=== PATIENT | female | born 1965 | race Caucasian/White ===

== ENCOUNTER → 2016-07-24 | Outpatient (CLI) | payer BC ==
[~2016-07-24] MED LIST: ASPI81TA28 PO; TRIA37.5 PO
[2016-07-24 10:40] LABS: BLOOD UREA NITROGEN 15 mg/dl (7-18); BUN/CREATININE RATIO 18.1 (10-20); CALCIUM 9.8 mg/dl (8.5-10.1); CARBON DIOXIDE 30 mmol/L (21-32); CHLORIDE 100 mmol/L (98-107); CREATININE 0.85 mg/dl (0.60-1.20); GLUCOSE 95 mg/dl (70-99); POTASSIUM 3.4 mmol/L (3.5-5.1); SODIUM 138 mmol/L (136-145)
[2016-07-24 10:44] LABS: CHOLESTEROL 211 mg/dl (0-200); CHOLESTEROL/HDL RATIO 3.5; HDL CHOLESTEROL 60 mg/dl; LDL CHOLESTEROL CALCULATED 130 mg/dl; TRIGLYCERIDES 104 mg/dl (0-150); VERY LOW DENSITY LIPOPROT CALC 21 mg/dl
== END | disposition home or self-care (01) ==
LOC: C.LAB1850 08:15
PROVIDERS: ATTEND Family Medicine
DX: Z13.220 Encounter for screening for lipoid disorders (principal); H81.09 Meniere's disease, unspecified ear

== ENCOUNTER → 2016-08-15 | Outpatient (CLI) | payer BC ==
[2016-08-15 10:25] LABS: POTASSIUM 3.6 mmol/L (3.5-5.1)
[2016-08-15 10:29] LABS: MAGNESIUM 2.5 mg/dl (1.8-2.4)
[2016-08-18 10:36] LABS: UNSATURATED (UBBC) 577 pg/mL (650-1340)
== END | disposition home or self-care (01) ==
LOC: C.LAB1850 08:44
PROVIDERS: ATTEND Nurse Practitioner Adult Health
DX: E87.6 Hypokalemia (principal)

== ENCOUNTER → 2016-09-05 | Outpatient (CLI) | payer BC ==
--- NOTE | 2016-09-06 13:14 | MAMMOGRAPHY REPORT ---
BILATERAL DIGITAL SCREENING MAMMOGRAM TOMOSYNTHESIS WITH CAD: 09/05/2016 CLINICAL HISTORY: Routine screening. TECHNIQUE: Breast tomosynthesis in addition to standard 2D mammography was performed. Current study was also evaluated with a Computer Aided Detection (CAD) system. COMPARISON: Comparison is made to exams dated: 06/03/2015 mammogram, 04/26/2012 mammogram - [facility], 11/23/2008, and 10/17/2006. BREAST COMPOSITION: The tissue of both breasts is heterogeneously dense, which may obscure small mas ses. FINDINGS: There are possibly increasing microcalcifications in the upper outer and 12:00 right breas t, for which additional spot magnification views are recommended. No other new suspicious mass, architectural distortion or cluster of microcalcifications is seen bila terally. IMPRESSION: ACR BI-RADS CATEGORY 0: INCOMPLETE EVALUATION: NEED ADDITIONAL IMAGING EVALUATION The possible increasing microcalcifications in the right breast need additional evaluation. The patient will be called to schedule an appointment. Approximately 10% of breast cancers are not detected with mammography. A negative mammographic report should not delay biopsy if a clinically suggestive mass is present. Phoebe Faria M.D. ay/:09/05/2016 18:36:33 Lab Asst: Remy TAI(Epifanio)(All), [facility] letter sent: Addl Imaging 0 BI-RADS Code: ACR BI-RADS Category 0: Incomplete Evaluation: Need Additional Imaging Evaluation
== END | disposition home or self-care (01) ==
LOC: C.MAMM 13:57
PROVIDERS: ATTEND Family Medicine
DX: Z12.31 Encounter for screening mammogram for malignant neoplasm of breast (principal); R92.0 Mammographic microcalcification found on diagnostic imaging of breast

== ENCOUNTER → 2016-09-13 | Outpatient (CLI) | payer BC ==
--- NOTE | 2016-09-13 16:40 | MAMMOGRAPHY REPORT ---
UNILATERAL RIGHT DIGITAL DIAGNOSTIC MAMMOGRAM: 09/13/2016 CLINICAL HISTORY: 51-year-old woman called back from screening mammography for 2 possible clusters of microcalcifications within the right breast. No strong family history of breast cancer. TECHNIQUE: Spot magnification right CC and ML views were obtained. COMPARISON: Comparison is made to exams dated: 09/05/2016 mammogram, 06/03/2015 mammogram, 04/26/2012 [facility], 11/23/2008, and 10/17/2006. BREAST COMPOSITION: The tissue of the right breast is heterogeneously dense, which may obscure small masses. FINDINGS: There are 2 groupings of microcalcifications in the 12:00 and upper outer middle to posteri or right breast. The grouping in the 12:00 axis contains 2-3 punctate microcalcifications. The grou ping in the upper outer quadrant contains 6-7 punctate microcalcifications. No obvious associated ma ss or architectural distortion. When comparing back to prior available mammograms, these appear very similar to the 2016 mammograms and some were likely present dating back to 11/23/2008, suggesting donte ign fibrocystic changes. However, given the increased conspicuity, a short interval follow-up diagno stic mammogram with repeat spot magnification views is read middle to ensure stability in 6 months. IMPRESSION: ACR-BI-RADS CATEGORY 3: PROBABLY BENIGN There are 2 groupings of punctate microcalcifications in the 12:00 and upper outer quadrant of the ri ght breast that most likely represent benign fibrocystic changes. However, a short interval follow-u p diagnostic mammogram including repeat spot magnification views is recommended to ensure stability i n 6 months. These results and recommendations were discussed with the patient at the time of the exam. She tenta tively scheduled a follow-up appointment prior to leaving our department. Approximately 10% of breast cancers are not detected with mammography. A negative mammographic report should not delay biopsy if a clinically suggestive mass is present. Phoebe Faria M.D. ay/:09/13/2016 13:51:11 Infection Prevention Specialist: Remy OSORIO)(All), [facility] letter sent: Follow Up Recommended 3 BI-RADS Code: ACR-BI-RADS Category 3: Probably Benign
== END | disposition home or self-care (01) ==
LOC: C.MAMM 13:13
PROVIDERS: ATTEND Family Medicine
DX: R92.0 Mammographic microcalcification found on diagnostic imaging of breast (principal)

== ENCOUNTER → 2016-09-20 | Outpatient (CLI) | payer BC | END | disposition home or self-care (01) | LOC: C.LAB1850 15:00 | PROVIDERS: ATTEND Family Medicine | DX: E53.8 Deficiency of other specified B group vitamins (principal); E83.41 Hypermagnesemia ==

== ENCOUNTER → 2017-03-19 | Outpatient (CLI) | payer BC ==
--- NOTE | 2017-03-19 15:09 | MAMMOGRAPHY REPORT ---
UNILATERAL RIGHT DIGITAL DIAGNOSTIC MAMMOGRAM TOMOSYNTHESIS AND TARGETED RIGHT ULTRASOUND: 03/19/2017 CLINICAL HISTORY: 51-year-old woman presents for follow-up in the right breast for probably benign gr oupings of punctate microcalcifications in the 12:00 axes and upper outer quadrant. TECHNIQUE: Right CC and MLO 2-D and tomosynthesis images, spot magnification right CC and ML views w ere obtained. Current study was also evaluated with the use of computer aided detection (CAD). COMPARISON: Comparison is made to exams dated: 09/13/2016 mammogram, 09/05/2016 mammogram, 06/03/2015 lee mogram, 04/26/2012 mammogram - [facility], 11/23/2008, and 10/17/2006. BREAST COMPOSITION: The tissue of the right breast is heterogeneously dense, which may obscure small masses. FINDINGS: The glandular pattern of the right breast is similar to prior exams, with stable asymmetry in the 12:00 far posterior right breast. No obvious new asymmetry or area of architectural distorti on is identified. There is a possible oval circumscribed mass in the posterior right breast along th e posterior nipple line on the CC view measuring 4.8 x 4.0 mm, for which further characterization wit h ultrasound was performed. This is thought to project superiorly based on the MLO views. The spot magnification views of the right breast redemonstrate small loose groupings of punctate micr ocalcifications in the 12:00 axis and upper outer middle one third of the breast. These 2 groupings of microcalcifications do not appear significantly increased in number comparing to the spot magnific ation views obtained on 09/13/2016, and they were likely present on prior mammograms dating back to 2 016. Given slight increased conspicuity, another short interval follow-up right diagnostic mammogram including spot magnification views is recommended to ensure longer stability. Another area of faint punctate microcalcifications is identified in the far posterior and superior right breast on the spo t magnification ML view, thought to project in the 12:00 axis. Targeted ultrasound was performed in the superior right breast 11:00, 12:00 and 1:00 axes. In the 11 :00 right breast, 1 cm from the nipple, there is a round hypoechoic circumscribed solid versus cystic mass with possible thickened wall, suggesting this could represent a collapsing cyst, although it do es not meet all of the criteria for a benign simple cyst. It measures 3.6 x 4.0 x 3.2 mm and may cor relate with the circumscribed mammographic 4 mm mass. Given the complicated nature, attempted ultras ound-guided cyst aspiration versus core needle biopsy is recommended for definitive characterization. Depending benign pathology results, would recheck the microcalcifications in the right breast in 6 more months. IMPRESSION: ACR BI-RADS CATEGORY 4: SUSPICIOUS, TARGETED ULTRASOUND ACR BI-RADS CATEGORY 4: SUSPICIO US 1. Ultrasound-guided cyst aspiration versus core needle biopsy is recommended in the 11:00 right [address] ast for a 4 mm circumscribed hypoechoic solid versus cystic mass, which may correlate with a circumsc ribed mammographic mass. 2. Pending benign pathology/cytology results, recommend right diagnostic tomosynthesis mammograms an d repeat spot magnification views to ensure stability of groupings of punctate microcalcifications in the 12:00 axis, upper outer quadrant middle one third and upper outer quadrant posteriorly in the ri ght breast. 3. Annual left mammography will also be due at that time. These results and recommendations were discussed with the patient at the time of the exam. She tenta tively scheduled the right breast ultrasound guided core biopsy and six-month follow-up bilateral annette gnostic appointment prior to leaving our department. Approximately 10% of breast cancers are not detected with mammography. A negative mammographic report should not delay biopsy if a clinically suggestive mass is present. Phoebe Faria M.D. ay/:03/19/2017 14:51:51 Apartment Leasing Agent: Remy TAI(Epifanio)(M), [facility] letter sent: Abnormal 4/5 BI-RADS Code: ACR BI-RADS Category 4: Suspicious Ultrasound BI-RADS: ACR BI-RADS Category 4: Suspici ous
== END | disposition home or self-care (01) ==
LOC: C.MAMM 10:49
PROVIDERS: ATTEND Family Medicine
DX: N63.0 Unspecified lump in unspecified breast (principal); R92.0 Mammographic microcalcification found on diagnostic imaging of breast

== ENCOUNTER → 2017-03-21 | Outpatient (CLI) | payer BC ==
--- NOTE | 2017-03-22 14:36 | MAMMOGRAPHY REPORT ---
UNILATERAL RIGHT DIGITAL DIAGNOSTIC MAMMOGRAM TOMOSYNTHESIS: 03/21/2017 CLINICAL HISTORY: Status post ultrasound-guided cyst aspiration of a possible complicated cyst in the 11:00 right breast, 1 cm from the nipple. Please refer to the report from right breast ultrasound guided cyst aspiration performed at the same time for full detail. IMPRESSION: Please refer to the report from right breast ultrasound guided cyst aspiration performed at the same time for full detail. Approximately 10% of breast cancers are not detected with mammography. A negative mammographic report should not delay biopsy if a clinically suggestive mass is present. Phoebe Faria M.D. ay/:03/21/2017 16:52:01 Snow Removal Supervisor: Krissy Harris, [facility] BI-RADS Code: n/a
--- NOTE | 2017-03-22 14:36 | MAMMOGRAPHY REPORT ---
ASPIRATION RIGHT BREAST: 03/21/2017 CLINICAL HISTORY: 51-year-old woman presents for ultrasound guided cyst aspiration versus core biopsy of an indeterminate hypoechoic solid versus cystic mass in the 11:00 right breast measuring 4 mm. COMPARISON: Comparison is made to exams dated: 03/21/2017 mammogram - [facility], 03/19/2017 ultrasound, 03/19/2017 mammogram, 09/13/2016 mammogram, and 09/05/2016 mammogram - [facility]. PATIENT CONSENT: After explaining the risks, benefits and alternatives of the procedure to the patien t, informed consent was obtained verbally and in writing. Specific risks include: bleeding, infection , puncture of adjacent structure, nontarget biopsy, sampling error, pain and medication reaction. A t deonna out was preformed and the right breast was agreed as the site for attempted cyst aspiration. PROCEDURE DESCRIPTION: The hypoechoic cystic appearing mass in the 11:00 right breast, 1 cm from the nipple was identified and targeted for cyst aspiration. 1% buffered lidocaine with and without epine phrine was administered as local anesthesia. A 22 gauge needle was advanced to the site of the mass. Aspiration was preformed and the cyst resolved completely. The fluid was greenish/brownish in color. It was rinsed in CytoLyt and sent to the pathology department for cytologic analysis. Postprocedure right CC and ML tomosynthesis images were obtained. There is persistence of the oval c ircumscribed 4 mm nodular asymmetry versus mass in question in the posterior right breast along the p osterior nipple line suggesting the aspirated cyst did not correlate with this small benign appearing mass. Also seen on the MLO view are numerous other partially circumscribed and obscured rounded and oval benign-appearing masses which most likely represent additional benign cysts/fibrocystic change. Therefore, can reassess the 4.4 mm nodular asymmetry along the posterior nipple line at the time of reassessment of right breast microcalcifications in 6 months. IMPRESSION: ASPIRATION Status post aspiration to near complete resolution of a cystic mass in the 11:00 right breast. The f luid was sent to the pathology department for cytologic analysis. Pending benign cytology results, follow-up right diagnostic tomosynthesis mammograms including spot m agnification views are recommended to ensure stability in 6 months. Annual left mammography will als o be due at that time. The patient will receive notification of the biopsy results from her referring physician. Phoebe Faria M.D. ay/:03/21/2017 16:56:17 Systems Programmer: Krissy Harris, [facility]
== END | disposition home or self-care (01) ==
LOC: C.MAMM 14:15
PROVIDERS: ATTEND Family Medicine
DX: R92.8 Other abnormal and inconclusive findings on diagnostic imaging of breast (principal); N63.10 Unspecified lump in the right breast, unspecified quadrant